=== PATIENT | female | born 1960 | race Caucasian/White ===

== ENCOUNTER 2016-11-08 13:50 | Emergency (ER) | payer OTHER ==
[~2016-11-08] VITALS: Ht 160 cm; Wt 54.4 kg
[2016-11-08 13:55] VITALS: BP 127/82
[2016-11-08 14:37] LABS: Basophils # (auto) 0 uL; Basophils % (auto) 0.4 % (0.0-2.0); CONDITION Y; Eosinophils # (auto) 0.1 uL; Eosinophils % (auto) 1.1 % (0.0-7.0); Hematocrit 42.7 % (36.0-46.0); Hemoglobin 14.4 g/dL (12.2-16.2); Lymphocytes # (auto) 1.3 uL; Lymphocytes % (auto) 22.2 % (10.0-50.0); Mean Corpuscular Hemoglobin 32.6 pg (28.0-32.0); Mean Corpuscular Hgb Conc. 33.8 g/dL (32.0-36.0); Mean Corpuscular Volume 96.3 fL (80.0-100.0); Mean Platelet Volume 9.9 fL (7.4-10.4); Monocytes # (auto) 0.3 uL; Monocytes % (auto) 5.1 % (0.0-12.0); Neutrophils # (auto) 4.2 uL; Neutrophils % (auto) 71.2 % (37.0-80.0); Platelet Count (auto) 250 10^3/uL (140-450); Red Cell Distribution Width 12.4 % (11.6-16.0); White Blood Cell 5.9 10^3/uL (4.4-10.8)
[2016-11-08 15:01] LABS: Anion Gap 8 (5-15); BUN/Creatinine Ratio 16.7; Blood Urea Nitrogen 15 mg/dL (7-18); Carbon Dioxide 24 mmol/L (21-32); Chloride 107 mmol/L (98-107); GFR African American 84 mL/min; Glucose 109 mg/dL (74-106); Potassium 3.7 mmol/L (3.5-5.1); Sodium 139 mmol/L (136-145)
[2016-11-08 15:02] LABS: Albumin 4.1 g/dL (3.4-5.0); Alkaline Phosphatase 45 U/L (45-117); Aspartate Aminotransferase 18 U/L (15-37); Bilirubin, Total 0.6 mg/dL (0.2-1.0); Calcium 8.6 mg/dL (8.5-10.1); GFR Non-African American 69 mL/min; Magnesium 2.6 mg/dL (1.6-2.6); Total Protein 7.5 g/dL (6.4-8.2)
== END 2016-11-08 15:09 | disposition left against medical advice (07) ==
LOC: ER 13:50
DX: R07.9 Chest pain, unspecified (principal); R00.2 Palpitations; Z53.21 Procedure and treatment not carried out due to patient leaving prior to being seen by health care provider
CPT/HCPCS: 36415; 80053; 83735; 84443; 84484; 85025; 93005